=== PATIENT | female | born 1980 | race Caucasian/White ===

== ENCOUNTER 2019-06-06 07:21 | Inpatient (IN) | payer BC ==
[2019-06-06] MEDS ORDERED: Lactated Ringers 1000 ML Bag* 1,000 ML IV ONE (08:36)
--- NOTE | 2019-06-06 08:44 | HP ---
General Information - Reason for Visit IUP at 39 weeks in labor - General Information Maternal Age: 39 Grav: 1 Para: 0 SAB: 0 IEA: 0 Estimated Due Date: 06/13/19 Determined By: LMP - confirmed by 11 week sono Gestational Age in Weeks/Days: 39-0/7 Maternal Blood Type and Rh: O Positive - Results this Serology/RPR Result: Non-Reactive Rubella Result: Non-Immune HBsAg Result: Negative HIV Result: Negative GBS Culture Result: Negative Past Medical History Delivery History: See Records Delivery History Comment: primip Pertinent Past Medical History: Non-Contributory Pertinent Past Surgical History: See Records Past Surgical History Comment: Cone Biopsy Pertinent Family History: See Records Family History Comment: Father: , [place] PGM: , Stroke PGF: , Old age MGM: , Breast cancer MGF: , Unknown - Antepartal Records Antepartal Records: Reviewed, Complicated by: - AMA Age 39 at [facility], Normal NIPT/MSAFP; Rubella Non-immune, will offer vaccine PP; EFW 6lbs 14oz at 35 weeks (74.4%tile, AC > 97.7 %tile) Review of Systems Constitutional: Uncomfortable - with UCs CV Complaint: No Respiratory: Shortness of Breath: No - URI symptoms for the past few weeks ( cough, congestion) Gastrointestinal: Normal Bowel Movement, Nausea Genitourinary: Leaking Fluid, No Dysuria, No Bleeding Musculoskeletal: Contractions Neurological: No Headache, No Visual Changes Movement: Normal Exam BP 148/94 Repeat 128/83 HR 90 RR 20 T 98.4 SpO2 99% on RA - Measurements Height: 5 ft 5 in Weight: 190 lb Body Mass Index (BMI): 31.6 Pre- Weight: 145 lb - Exam Breast: Breast Exam Deferred CVA: No CVA Tenderness Extremities: No Edema Heart: Normal Rhythm/Heart Sounds HEENT: No Significant Findings Lungs: Clear Bilaterally Rectal: Rectal Exam Deferred Reflexes: DTR 2+ Thyroid: No Thyromegaly - Abdominal Exam Abdomen Exam: Non-Tender - Ultrasound/Biophysical Profile Ultrasound Status: Not Done Targeted Exam Findings See L&D Outpatient Visit Provider Note for Findings: N/A Estimated Weight: EFW 8.5-9lbs by Claudia Cervical Exam: 4cm, 5cm Effacement: 100% Station: 0 Presenting Part: Vertex - per Dr. Watson Membrane Status: SROM - clear Amniotic Fluid Evaluation: Gross Rupture Sterile Speculum Exam: Not done Bleeding/Discharge: Bloody Show EFM Findings - External Monitor Findings Baseline Heart Rate: 160 External Monitor Findings: Accelerations Present, No Pattern of Variable or Late Decelerations, Variability Moderate, Baseline Stable External Monitor Findings Comment: Elevated baseline. Doubt metabolic acidemia Contractions: Regular Contraction Frequency: q 2 min Assessment/Plan - Assessment IUP at 39-0/7 in labor Elevated baseline FHT Suspected macrosomia - Plan Plan: Admit - Anticipate Vaginal Delivery Plan Comment: Reviewed slightly elevated FHT baseline with pt and FOB. Recommend IV fluids. They agree. Will also check BP labs in light of isolated elevated BP. Admit. Anticipate normal progression in labor. Dr. Watson aware of pt presence and condition. Agrees with plan - Date/Time of Admission Date of Admission: 06/06/19 Time of Admission: 07:56
[2019-06-06 09:36] LABS: ABS Eosinophils 0.1 10^3/ul (0-0.6); ABS Lymphocytes 1.6 10^3/ul (1.0-4.8); ABS Monocytes 1.2 10^3/ul (0-0.8); ABS Neutrophils 16.7 10^3/ul (1.5-7.7); Eosinophil % 0.3 %; Hematocrit 37 % (35-47); Hemoglobin 12.4 g/dL (12.0-16.0); Lymphocyte % 8.1 %; Mean Corpuscular HGB Conc 34 g/dL (31-36); Mean Corpuscular Hemoglobin 30 pg (27-31); Mean Corpuscular Volume 87 fL (80-97); Mean Platelet Volume 9.2 fL (7.4-10.4); Nucleated Red Blood Cells % 0.1; Platelet Count 304 10^3/uL (150-450); Red Blood Count 4.19 10^6 /uL (3.70-4.87); Red Cell Distribution Width 13 % (10-15); White Blood Count 19.5 10^3/uL (3.5-10.8)
[2019-06-06 09:53] LABS: Urine Benzodiazepine Screen None Detected (None Detect); Urine Opiates Screen None Detected (None Detect)
[2019-06-06 09:54] LABS: Albumin 3.6 g/dL (3.2-5.2); Albumin/Globulin Ratio 1.3 (1-3); Calcium 8.9 mg/dL (8.6-10.3); EGFR African American 101.5 (>60); EGFR Non-African American 83.9 (>60); Globulin 2.7 g/dL (2-4); Total Bilirubin 0.4 mg/dL (0.2-1.0); Total Protein 6.3 g/dL (6.4-8.9); Uric Acid 5.7 mg/dL (2.3-6.6)
--- NOTE | 2019-06-06 12:52 | PN ---
Progress Note - Progress Note Date of Service: 06/06/19 Note: S: Pt has been laboring unmedicated really well. FOB continuously at bedside. Has had some visitors in and out. Changing position frequently. Has been up and walking, rocking and is now resting in bed on her right side with the peanut ball. O: BP 126/84 (normal BP labs) HR 92 RR 20 T 98.6 FHT 140bpm. Moderate variability. No decels by intermittent doptones UCS pt just now placed on monitor, too early to tell VE 4-5/100%/vtx 0 (unchanged from initial check) A: IUP at 39 weeks in labor No evidence of metabolic acidemia P: Place pt back on monitor to assess contraction pattern. Continue expectant managment for now. Consider augmentation PRN.
--- NOTE | 2019-06-06 15:15 | PN ---
Progress Note - Progress Note Date of Service: 06/06/19 Note: S: Pt has been up and walking in the halls. Feels that UCs have spaced out a little. Pt denies MAN. No visual changes. No RUQ pain O: BP 142/90 HR 96 RR 20 T 98.7 FHT 140bpm. Moderate variability. +Accels. No decels UCs q 5-7 VE 4-5/100%/vtx 0, more anterior A: IUP at 39 weeks in labor No evidence of metabolic acidemia ROM x 10.5 hours P: Recommend IV pitocin augmentation. PARQ IV pitocin. Pt and FOB agree.
[2019-06-06] MEDS: Lactated Ringers 1000 ML Bag* 1,000 ML IV SCH ×2 (15:31→17:32)
[2019-06-06] MEDS ORDERED: Oxytocin in LR* 20 UNITS/1,000 ML BAG IVPB SCH (16:00)
--- NOTE | 2019-06-06 18:57 | PN ---
Progress Note - Progress Note Date of Service: 06/06/19 Note: S: Pt in hands and knees. Moaning with UCs. RNs and FOB at bedside providing continuous support. Pt coping well O: BP 148/83 HR 75 RR 22 T 98.8 FHT 150bpm. Moderate variability. +Accels. No decels. UCs q 2 min. IV pitocin at 6mu/min VE 6-7/100%/vtx 0, forebag palpated A: IUP at 39 weeks in active labor No evidence of metabolic acidemia ROM x 14 hours P: Continue IV pitocin. Reinforced bedside labor support. Pt might be interested in nitrous oxide at some point. Will request PRN
--- NOTE | 2019-06-06 21:28 | PN ---
Progress Note - Progress Note Date of Service: 06/06/19 Note: S: Pt continues to cope valiantly with assistance from FOB and RN O: BP 148/83 HR 85 SpO2 99% FHT 155bpm. Moderate variability. +Accels. No decels UCs q 2-3, IV pitocin at 6mu/min VE 9cm/100%/vtx 0, bulging forebag A: IUP at 39 weeks in active labor No evidence of metabolic acidemia ROM x 16.75 hours P: Bedside support. Anticipate trial of pushing soon
--- NOTE | 2019-06-06 22:09 | PN ---
Progress Note - Progress Note Date of Service: 06/06/19 Note: Quick Note: Pt requests Nitrous Oxide. Ordered. Will administer per protocol
--- NOTE | 2019-06-06 23:50 | PN ---
Progress Note - Progress Note Date of Service: 06/06/19 Note: Quick Note: Pt coached in pushing as of 2314 following amniotomy of forebag to clear fluid. Very resistant to sensation of vaginal pressure. Trying position changes to encourage pt to embrace pressure and push effectively. Have tried sitting upright, left lateral, Lying with knees back. Enc pt to get up to bathroom and sit on toilet to try and push for a few contractions. Will continue to rhythmic gymnastics coach pt in pushing.
[2019-06-07] MEDS ORDERED: Acetaminophen TAB* 325 MG PO PRN (02:37)
[2019-06-07] MEDS ORDERED: Witch Hazel PAD* JAR TOPICAL PRN (02:37)
[2019-06-07] MEDS ORDERED: Glycerin ADULT SUPP PR PRN (02:37)
[2019-06-07] MEDS ORDERED: Measles, Mumps,Rubella VACC* 0.5 ML/VIAL SUBCUT ONE (02:37)
--- NOTE | 2019-06-07 02:56 | PROCNOTE ---
[facility] OB: Delivery Note - Delivery A Date of : 06/07/19 Time of : 01:48 [place] Sex: Male - "Filiberto" [place] Weight at : 8 lb 8 oz Score 1 Minute: 8 Score 5 Minutes: 8 Gestational Age in Weeks and Days at Delivery: 39 Weeks and 1 Days Delivery Method: Spontaneous Vaginal Labor: Spontaneous - augmented with IV pitocin Did Patient attempt ?: N/A, No Previous Amniotic Fluid: Clear Estimated Blood Loss: 400 Anesthesia/Analgesia: Nitrous-Labor Delivered By: Norma Maharaj - Nursery Level of Nursery: Regular/Bedside - Perineum Perineal Injury: 3rd Degree Extension - Partial 3rd. Repair by DO Perineal Repair: Dr. Watson - Events Delivery Events of Note: Pitocin During Labor - augmentation - Additional Delivery Notes Additional Delivery Notes: Pt admitted in labor s/p spontaneous rupture of membranes to clear fluid. IV pitocin augmentation led to onset active labor with expected progression to complete. Pushed x 2 hours, 38 min. liveborn male. Slow, controlled delivery of head. OA to MEL. Shoulders followed easily with maternal push. Infant vigorous with spontaneous cry. HR>110bpm. Delivered to maternal abdomen. Cord clamped x 2 and cut when pulsations ceased. Spontaneous delivery intact placenta. Membranes complete. Fundus firm to massage with IV Pitocin infusing. Perineum assessed and partial 3rd degree laceration identified. Dr. Watson to bedside for consult and repair. See his note. EBL 400mL. At time of note mother and infant in stable condition. Planning to breast feed
[2019-06-07] MEDS ORDERED: Oxytocin in LR* 20 UNITS/1,000 ML BAG IVPB SCH (03:00)
[2019-06-07] MEDS ORDERED: Lactated Ringers 1000 ML Bag* 1,000 ML IV SCH (03:00)
--- NOTE | 2019-06-07 03:17 | PN ---
Progress Note - Progress Note Date of Service: 06/07/19 Note: PROCEDURE NOTE - Repair of Partial 3rd degree laceration Called to bedside by creche attendant to assess perineal injury post delivery. Injury consistent with partial 3rd degree tear. The most superficial portion of the capsule was torn, the remainder of the sphincter muscle was intact. Rectal exam was performed and there was no evidence of 4th degree laceration. The capsule was repaired with interrupted 2-0 vicryl sutures. The remainder of the repair was performed in the usual fashion with 2-0 vicryl. Rectal exam was again performed at the end of the repair; with no sutures palpated and again no evidence of 4th degree injury. ESTEPHANIA Maharaj assisted with the repair. DO PRESTON Núñez
[2019-06-07] MEDS ORDERED: Lidocaine 1% INJ* 10 MG/ML 30 ML SDV ONE (05:00)
[2019-06-07] MEDS: Dibucaine 1% 28.35 GM TUBE PR PRN (05:11)
[2019-06-07] MEDS: Ibuprofen TAB* 600 MG PO SCH ×3 (05:11→23:16)
[2019-06-07] MEDS: Simethicone TAB* 80 MG TAB.CHEW PO SCH ×2 (09:38→13:37)
[2019-06-07] MEDS: Docusate CAP* 100 MG PO SCH ×3 (09:48→20:07)
--- NOTE | 2019-06-07 23:06 | PTEDU ---
Patient Name: NUZHAT KNOX NUZHAT KNOX selected video: BBOB: Nurturing Your Gorgeous &Growing Baby by to view on 06/07/2019 at 11:05:50 PM from [id number]
--- NOTE | 2019-06-07 23:31 | PTEDU ---
Patient Name: NUZHAT KNOX NUZHAT KNOX selected video: Follow Me Mum: The [facility] to Successful to view on 9 at 11:30:38 PM [id number]
[2019-06-08 06:37] LABS: ABS Eosinophils 0.2 10^3/ul (0-0.6); ABS Lymphocytes 2.6 10^3/ul (1.0-4.8); ABS Monocytes 1.2 10^3/ul (0-0.8); ABS Neutrophils 11.1 10^3/ul (1.5-7.7); Eosinophil % 1.1 %; Hematocrit 28 % (35-47); Hemoglobin 9.6 g/dL (12.0-16.0); Lymphocyte % 17.5 %; Mean Corpuscular HGB Conc 34 g/dL (31-36); Mean Corpuscular Hemoglobin 30 pg (27-31); Mean Corpuscular Volume 89 fL (80-97); Mean Platelet Volume 8.7 fL (7.4-10.4); Platelet Count 198 10^3/uL (150-450); Red Blood Count 3.19 10^6 /uL (3.70-4.87); Red Cell Distribution Width 14 % (10-15); White Blood Count 15.2 10^3/uL (3.5-10.8)
[2019-06-08] MEDS: Ibuprofen TAB* 600 MG PO SCH ×4 (07:18→21:47)
[2019-06-08] MEDS: Docusate CAP* 100 MG PO SCH ×3 (07:26→21:47)
[2019-06-08] MEDS: Ferrous Gluconate TAB* 324 MG TAB PO SCH ×2 (07:26→21:47)
[2019-06-09] MEDS: Ibuprofen TAB* 600 MG PO SCH (03:57)
[2019-06-09] MEDS: Docusate CAP* 100 MG PO SCH (08:13)
[2019-06-09] MEDS: Ferrous Gluconate TAB* 324 MG TAB PO SCH (08:13)
[2019-06-09 08:42] VITALS: BP 121/78
[2019-06-09] MEDS: Dibucaine 1% 28.35 GM TUBE PR PRN (12:08)
== END 2019-06-09 15:30 | disposition home or self-care (01) | DRG 542 ==
LOC: MCHOBOUT 07:21 → MCHOB 07:56
PROVIDERS: ADMIT Midwife; ATTEND Midwife
PROC: 10E0XZZ Delivery of Products of Conception, External Approach (ICD-10-PCS; principal; 2019-06-07)
PROC: 10907ZC Drainage of Amniotic Fluid, Therapeutic from Products of Conception, Via Natural or Artificial Opening (ICD-10-PCS; 2019-06-07)
PROC: 0DQR0ZZ Repair Anal Sphincter, Open Approach (ICD-10-PCS; 2019-06-07)
DX: O76 Abnormality in fetal heart rate and rhythm complicating labor and delivery (principal); Z37.0 Single live birth; O70.20 Third degree perineal laceration during delivery, unspecified; O90.81 Anemia of the puerperium; D64.9 Anemia, unspecified; Z3A.39 39 weeks gestation of pregnancy
CPT/HCPCS: 36415; 80053; 80307; 84550; 85025; 86850; 86900; 86901; 90707; A9270-GY